=== PATIENT | male | born 1980 | race Caucasian/White ===

== ENCOUNTER 2017-12-23 10:08 | Inpatient (IN) | payer OTHER ==
[2017-12-23 11:46] LABS: BASO % 0.4 % (0.0-1.0); EOS # 0.1 10^3/uL (0.0-0.50); EOS % 1.3 % (0.0-3.0); HEMATOCRIT 46.6 % (42.0-52.0); HEMOGLOBIN 15.8 g/dl (13.5-17.5); IMMATURE GRANULOCYTE % 1.4 % (0-3.0); LYMPH # 2.2 10^3/uL (1.5-4.5); LYMPH % 21.8 % (24.0-44.0); MEAN CORPUSCULAR HEMOGLOBIN 29.3 pg (27.0-33.0); MEAN CORPUSCULAR HGB CONC 33.9 g/dl (32.0-36.5); MEAN CORPUSCULAR VOLUME 86.3 fl (80.0-96.0); MONO # 0.8 10^3/uL (0.0-0.8); MONO % 7.4 % (0.0-5.0); NEUTROPHILS # 6.9 10^3/uL (1.8-7.7); NEUTROPHILS % 67.7 % (36.0-66.0); PLATELET COUNT, AUTOMATED 210 10^3/uL (150-450); RED CELL DISTRIBUTION WIDTH 13.5 % (11.5-14.5); WHITE BLOOD COUNT 10.2 10^3/uL (4.0-10.0)
[2017-12-23 12:08] LABS: AMPHETAMINES LEVEL URINE NEGATIVE (NEGATIVE); BARBITURATES URINE NEGATIVE (NEGATIVE); BENZODIAZEPINES URINE NEGATIVE (NEGATIVE); CANNABINOIDS URINE NEGATIVE (NEGATIVE); COCAINE METABOLITE URINE NEGATIVE (NEGATIVE); METHADONE URINE NEGATIVE (NEGATIVE); OPIATES URINE NEGATIVE (NEGATIVE); PHENCYCLIDINE URINE NEGATIVE (NEGATIVE)
[2017-12-23 12:13] LABS: ALBUMIN 3.5 GM/DL (3.2-5.2); ALBUMIN/GLOBULIN RATIO 1.25 (1.00-1.93); ALKALINE PHOSPHATASE 67 U/L (45-117); ALT/SGPT 46 U/L (12-78); ANION GAP 9 MEQ/L (8-16); AST/SGOT 22 U/L (7-37); BILIRUBIN,DIRECT 0.1 MG/DL (0.0-0.2); BILIRUBIN,TOTAL 0.3 MG/DL (0.2-1.0); BLOOD UREA NITROGEN 9 MG/DL (7-18); CALCIUM LEVEL 8.2 MG/DL (8.5-10.1); CARBON DIOXIDE LEVEL 28 MEQ/L (21-32); CHLORIDE LEVEL 105 MEQ/L (98-107); CREATININE FOR GFR 0.91 MG/DL (0.70-1.30); ETHYL ALCOHOL (ETHANOL) 0.023 % (0.000-0.010); GLOMERULAR FILTRATION RATE > 60.0 (>60); GLUCOSE, FASTING 95 MG/DL (70-100); POTASSIUM SERUM 3.8 MEQ/L (3.5-5.1); SALICYLATE LEVEL 1.7 MG/DL (5.0-30.0); SODIUM LEVEL 142 MEQ/L (136-145); THYROID STIMULATING HORMONE 0.725 uIU/ML (0.358-3.740); TOTAL PROTEIN 6.3 GM/DL (6.4-8.2)
[2017-12-23 12:17] LABS: ACETAMINOPHEN LEVEL < 2.0 UG/ML (10.0-30.0)
[2017-12-23] MEDS: NICOTINE 14 MG/24 HR TRANSDERMAL TD (12:42)
[2017-12-23] MEDS: GABAPENTIN 300 MG CAP PO ×2 (12:42→21:10)
[2017-12-23] MEDS: hydroCHLOROthiazide 12.5 MG CAPSULE PO (15:05)
[2017-12-23] MEDS: LISINOPRIL 20 MG TAB PO (15:05)
[2017-12-23] MEDS: traZODone 100 MG TAB PO (22:13)
[2017-12-24] MEDS: NICOTINE 21MG/24HR 1 EA TRANSDERMAL TD (08:13)
[2017-12-24] MEDS: LISINOPRIL 20 MG TAB PO (08:13)
[2017-12-24] MEDS: hydroCHLOROthiazide 12.5 MG CAPSULE PO (08:13)
[2017-12-24] MEDS: predniSONE 10 MG TAB PO (08:13)
[2017-12-24] MEDS: GABAPENTIN 300 MG CAP PO ×3 (08:13→21:02)
[2017-12-24] MEDS: VENLAFAXINE **XR** 37.5 MG CAPSULE PO (11:25)
[2017-12-24] MEDS: ACETAMINOPHEN TAB 650MG DOSE (2X325MG) PO (12:25)
[2017-12-24] MEDS: traZODone 100 MG TAB PO (21:57)
[2017-12-25] MEDS: GABAPENTIN 300 MG CAP PO ×3 (08:47→21:35)
[2017-12-25] MEDS: hydroCHLOROthiazide 12.5 MG CAPSULE PO (08:47)
[2017-12-25] MEDS: NICOTINE 21MG/24HR 1 EA TRANSDERMAL TD (08:47)
[2017-12-25] MEDS: LISINOPRIL 20 MG TAB PO (08:47)
[2017-12-25] MEDS: predniSONE 10 MG TAB PO (08:47)
[2017-12-25] MEDS: VENLAFAXINE **XR** 37.5 MG CAPSULE PO (08:47)
[2017-12-25] MEDS: ACETAMINOPHEN TAB 650MG DOSE (2X325MG) PO (10:44)
[2017-12-25] MEDS: traZODone 100 MG TAB PO (22:09)
[2017-12-26] MEDS: GABAPENTIN 300 MG CAP PO ×3 (08:05→21:39)
[2017-12-26] MEDS: NICOTINE 21MG/24HR 1 EA TRANSDERMAL TD (08:05)
[2017-12-26] MEDS: hydroCHLOROthiazide 12.5 MG CAPSULE PO (08:05)
[2017-12-26] MEDS: LISINOPRIL 20 MG TAB PO (08:05)
[2017-12-26] MEDS: VENLAFAXINE **XR** 37.5 MG CAPSULE PO ×2 (08:05→09:34)
[2017-12-26] MEDS: VENLAFAXINE **XR** 75MG CAPSULE PO (09:00)
[2017-12-26] MEDS: traZODone 100 MG TAB PO (22:46)
[2017-12-27] MEDS: hydroCHLOROthiazide 12.5 MG CAPSULE PO (08:09)
[2017-12-27] MEDS: NICOTINE 21MG/24HR 1 EA TRANSDERMAL TD (08:09)
[2017-12-27] MEDS: LISINOPRIL 20 MG TAB PO (08:09)
[2017-12-27] MEDS: VENLAFAXINE **XR** 75MG CAPSULE PO (08:09)
[2017-12-27] MEDS: GABAPENTIN 300 MG CAP PO ×3 (08:09→21:02)
[2017-12-27] MEDS: ACETAMINOPHEN TAB 650MG DOSE (2X325MG) PO (12:27)
[2017-12-27] MEDS: traZODone 100 MG TAB PO (22:29)
[2017-12-28] MEDS: NICOTINE 21MG/24HR 1 EA TRANSDERMAL TD (08:26)
[2017-12-28] MEDS: GABAPENTIN 300 MG CAP PO ×3 (08:26→20:52)
[2017-12-28] MEDS: VENLAFAXINE **XR** 37.5 MG CAPSULE PO (08:26)
[2017-12-28] MEDS: hydroCHLOROthiazide 12.5 MG CAPSULE PO (08:27)
[2017-12-28] MEDS: LISINOPRIL 20 MG TAB PO (08:27)
[2017-12-28] MEDS ORDERED: VENLAFAXINE **XR** 75MG CAPSULE PO (09:00)
[2017-12-28] MEDS: traZODone 100 MG TAB PO (22:38)
[2017-12-29] MEDS: LISINOPRIL 20 MG TAB PO (08:00)
[2017-12-29] MEDS: GABAPENTIN 300 MG CAP PO ×3 (08:00→22:02)
[2017-12-29] MEDS: VENLAFAXINE **XR** 75MG CAPSULE PO (08:00)
[2017-12-29] MEDS: hydroCHLOROthiazide 12.5 MG CAPSULE PO (08:00)
[2017-12-29] MEDS: NICOTINE 21MG/24HR 1 EA TRANSDERMAL TD (08:01)
[2017-12-29] MEDS: ARIPiprazole 2 MG TAB PO (22:01)
[2017-12-29] MEDS: traZODone 100 MG TAB PO (22:41)
[2017-12-30] MEDS: NICOTINE 21MG/24HR 1 EA TRANSDERMAL TD (08:17)
[2017-12-30] MEDS: hydroCHLOROthiazide 12.5 MG CAPSULE PO (08:17)
[2017-12-30] MEDS: LISINOPRIL 20 MG TAB PO (08:17)
[2017-12-30] MEDS: VENLAFAXINE **XR** 75MG CAPSULE PO (08:17)
[2017-12-30] MEDS: GABAPENTIN 300 MG CAP PO ×3 (08:17→20:19)
[2017-12-30] MEDS: ACETAMINOPHEN TAB 650MG DOSE (2X325MG) PO (12:39)
[2017-12-30] MEDS: traZODone 100 MG TAB PO (23:07)
[2017-12-31] MEDS: VENLAFAXINE **XR** 75MG CAPSULE PO (09:00)
[2017-12-31] MEDS: hydroCHLOROthiazide 12.5 MG CAPSULE PO (09:00)
[2017-12-31] MEDS: LISINOPRIL 20 MG TAB PO (09:00)
[2017-12-31] MEDS: GABAPENTIN 300 MG CAP PO ×3 (09:00→20:47)
[2017-12-31] MEDS: NICOTINE 21MG/24HR 1 EA TRANSDERMAL TD (09:01)
[2017-12-31] MEDS: MULTIVITAMINS/MINERALS THERAP 1 TAB PO (11:57)
[2017-12-31] MEDS: traZODone 100 MG TAB PO (23:47)
[2018-01-01] MEDS: GABAPENTIN 300 MG CAP PO ×3 (08:04→21:37)
[2018-01-01] MEDS: LISINOPRIL 20 MG TAB PO (08:04)
[2018-01-01] MEDS: hydroCHLOROthiazide 12.5 MG CAPSULE PO (08:04)
[2018-01-01] MEDS: MULTIVITAMINS/MINERALS THERAP 1 TAB PO (08:04)
[2018-01-01] MEDS: NICOTINE 21MG/24HR 1 EA TRANSDERMAL TD (08:05)
[2018-01-01] MEDS: VENLAFAXINE **XR** 75MG CAPSULE PO (08:05)
[2018-01-01] MEDS: ACETAMINOPHEN TAB 650MG DOSE (2X325MG) PO (17:31)
[2018-01-01] MEDS: traZODone 100 MG TAB PO (23:30)
[2018-01-02] MEDS: VENLAFAXINE **XR** 75MG CAPSULE PO (09:10)
[2018-01-02] MEDS: LISINOPRIL 20 MG TAB PO (09:10)
[2018-01-02] MEDS: hydroCHLOROthiazide 12.5 MG CAPSULE PO (09:11)
[2018-01-02] MEDS: GABAPENTIN 300 MG CAP PO ×3 (09:11→21:03)
[2018-01-02] MEDS: NICOTINE 21MG/24HR 1 EA TRANSDERMAL TD (09:11)
[2018-01-02] MEDS: MULTIVITAMINS/MINERALS THERAP 1 TAB PO (09:11)
[2018-01-02] MEDS: MOM 30ML SUSPENSION UDC PO (10:51)
[2018-01-02] MEDS: NICOTINE 14 MG/24 HR TRANSDERMAL TD (14:37)
[2018-01-02] MEDS: traZODone 100 MG TAB PO (23:02)
[2018-01-03] MEDS: LISINOPRIL 20 MG TAB PO (08:46)
[2018-01-03] MEDS: MULTIVITAMINS/MINERALS THERAP 1 TAB PO (08:46)
[2018-01-03] MEDS: GABAPENTIN 300 MG CAP PO ×3 (08:46→20:40)
[2018-01-03] MEDS: VENLAFAXINE **XR** 75MG CAPSULE PO (08:46)
[2018-01-03] MEDS: hydroCHLOROthiazide 12.5 MG CAPSULE PO (08:47)
[2018-01-03] MEDS: NICOTINE 14 MG/24 HR TRANSDERMAL TD (08:47)
[2018-01-03] MEDS: traZODone 100 MG TAB PO (22:44)
[2018-01-04] MEDS: MULTIVITAMINS/MINERALS THERAP 1 TAB PO (08:27)
[2018-01-04] MEDS: GABAPENTIN 300 MG CAP PO ×3 (08:27→20:56)
[2018-01-04] MEDS: hydroCHLOROthiazide 12.5 MG CAPSULE PO (08:27)
[2018-01-04] MEDS: VENLAFAXINE **XR** 75MG CAPSULE PO (08:27)
[2018-01-04] MEDS: NICOTINE 14 MG/24 HR TRANSDERMAL TD ×2 (08:28→09:48)
[2018-01-04] MEDS: LISINOPRIL 20 MG TAB PO (08:28)
[2018-01-04] MEDS: MAALOX 30 ML SUSP *UDC PO (21:38)
[2018-01-04] MEDS: traZODone 100 MG TAB PO (22:46)
[2018-01-05] MEDS: GABAPENTIN 300 MG CAP PO ×3 (08:42→20:35)
[2018-01-05] MEDS: MULTIVITAMINS/MINERALS THERAP 1 TAB PO (08:42)
[2018-01-05] MEDS: VENLAFAXINE **XR** 75MG CAPSULE PO (08:42)
[2018-01-05] MEDS: NICOTINE 14 MG/24 HR TRANSDERMAL TD (08:42)
[2018-01-05] MEDS: hydroCHLOROthiazide 12.5 MG CAPSULE PO (08:42)
[2018-01-05] MEDS: LISINOPRIL 20 MG TAB PO (08:44)
[2018-01-05] MEDS: ARIPiprazole 10 MG TAB PO (20:35)
[2018-01-05] MEDS: traZODone 100 MG TAB PO (22:05)
[2018-01-06] MEDS: LISINOPRIL 20 MG TAB PO (08:22)
[2018-01-06] MEDS: VENLAFAXINE **XR** 75MG CAPSULE PO (08:22)
[2018-01-06] MEDS: GABAPENTIN 300 MG CAP PO ×3 (08:22→21:37)
[2018-01-06] MEDS: MULTIVITAMINS/MINERALS THERAP 1 TAB PO (08:22)
[2018-01-06] MEDS: hydroCHLOROthiazide 12.5 MG CAPSULE PO (08:22)
[2018-01-06] MEDS: NICOTINE 14 MG/24 HR TRANSDERMAL TD (09:00)
[2018-01-06] MEDS: ARIPiprazole 10 MG TAB PO (21:37)
[2018-01-06] MEDS: traZODone 100 MG TAB PO (22:08)
[2018-01-07] MEDS: VENLAFAXINE **XR** 75MG CAPSULE PO (04:51)
[2018-01-07] MEDS: MULTIVITAMINS/MINERALS THERAP 1 TAB PO (04:52)
[2018-01-07] MEDS: GABAPENTIN 300 MG CAP PO (04:52)
[2018-01-07] MEDS: hydroCHLOROthiazide 12.5 MG CAPSULE PO (04:53)
[2018-01-07] MEDS: LISINOPRIL 20 MG TAB PO (04:53)
[2018-01-07] MEDS ORDERED: GABAPENTIN 300 MG CAP PO (14:00)
== END 2018-01-07 05:00 | DRG 885 ==
LOC: M PSY 01-04 08:15 → M ED 10:08 → M ED INP 15:28 → M PSY 17:53
DX: F33.9 Major depressive disorder, recurrent, unspecified (principal); F41.1 Generalized anxiety disorder; I10 Essential (primary) hypertension; F40.10 Social phobia, unspecified; F17.220 Nicotine dependence, chewing tobacco, uncomplicated; F17.210 Nicotine dependence, cigarettes, uncomplicated; M54.81 Occipital neuralgia; Z79.899 Other long term (current) drug therapy; Z81.8 Family history of other mental and behavioral disorders; Z59.9 Problem related to housing and economic circumstances, unspecified; Z56.3 Stressful work schedule; F43.10 Post-traumatic stress disorder, unspecified; F63.81 Intermittent explosive disorder; F90.9 Attention-deficit hyperactivity disorder, unspecified type

== ENCOUNTER → 2018-06-06 | Outpatient (CLI) | payer OTHER ==
[~2018-06-06] MED LIST: ARIP10TAB PO; CONC36TA4 PO; CONRAY-43 43% 50ML VIAL (Q9960) As Ordered ONE; GABA600T4 PO; METH54TA PO; PRED10PA PO; PROHANCE 279.3MG/ML 5ML VIAL (A9576) As Ordered ONE; TRAZ-163 PO; VENL150C43 PO; ZEST1TAB2 PO
--- NOTE | 2018-06-06 11:32 | REP ---
MR ARTHROGRAM RIGHT SHOULDER: TECHNIQUE: Axial T2 fat sat, coronal oblique T1, T2 fat sat, post arthrogram axial T1 fat sat, proton density, coronal oblique T1 fat sat, T2 sat, sagittal oblique T2 fat sat, ABER T1 fat sat. There are minor hypertrophic changes at the acromioclavicular joint with downward sloping of the acromion which is type 2. There is ill-defined high signal involving the supraspinatus tendon compatible with tendinopathy/tendonitis. I do not see evidence of a rotator cuff tear. There also appears to be tendinosis of the subscapularis. Biceps tendon is within the bicipital groove and no tenosynovitis. There is no Hill-Sachs deformity. No abnormal signal is seen in the deltoid muscle. Biceps labral complex appears intact. I do not see evidence of a labral tear. No paralabral cyst is seen. Bone marrow signal is homogeneous and unremarkable. There is no bone marrow edema or occult fracture. There is a normal amount of joint fluid. IMPRESSION: Very mild hypertrophic changes as the acromioclavicular joint with mild downward sloping of the acromion which is type 2. There is supraspinatus tendinopathy/tendonitis without evidence of a rotator cuff tear or labral tear. Electronically Signed by Bimal Wynn MD 06/06/2018 04:46 P
--- NOTE | 2018-06-06 16:43 | REP ---
Procedure: Right shoulder arthrogram The procedure was performed under the direct supervision of Dr. Wynn. History: Right shoulder pain The benefits and risks including but not limited to pain, infection, bleeding and anaphylaxis were explained to the patient and informed consent was obtained. Technique: The right glenohumeral joint space was localized using fluoroscopic guidance. The skin was prepped and draped in a sterile fashion. 1% lidocaine was used as a local anesthetic. Using fluoroscopic guidance a 22 gauge spinal needle was inserted and advanced into the joint. 0.5 ml of Conray 43 was injected to verify placement. 11 ml of a solution containing 20 ml of sterile saline and 0.15 ml of ProHance was injected into the joint. The needle was removed and the patient was taken to MRI for postprocedural imaging. The the patient tolerated the procedure well and there were no immediate complications. Less than 6 seconds of fluoro time was utilized for this procedure. Reviewed by SANDRA Chavarria 06/06/2018 04:01 P Electronically Signed by Bimal Wynn MD 06/06/2018 04:35 P
== END ==
LOC: M RADPRO 06:35
DX: M65.811 Other synovitis and tenosynovitis, right shoulder (principal); M25.511 Pain in right shoulder
CPT/HCPCS: 23350; 73223; 77002; A9576; Q9960

== ENCOUNTER → 2018-12-26 | Outpatient (CLI) | payer OTHER ==
[~2018-12-26] MED LIST changes: -ARIP10TAB PO; +ARIP1TAB PO; -CONRAY-43 43% 50ML VIAL (Q9960) As Ordered ONE; -METH54TA PO; +METH54TA5 PO; -PROHANCE 279.3MG/ML 5ML VIAL (A9576) As Ordered ONE
--- NOTE | 2018-12-26 08:12 | REP ---
Abdominal right upper quadrant ultrasound for nausea and vomiting: There is no cholelithiasis, gallbladder wall thickening or pericholecystic fluid. There is no intrahepatic or extrahepatic biliary duct dilatation. The common biliary duct measures 2.0 mm in diameter. The hepatic parenchyma is homogeneous and otherwise unremarkable. The visualized areas of the pancreas are unremarkable. The right kidney is normal size measuring 11.0 x 5.3 x 4.4 cm. There are is no calculus, hydronephrosis, solid mass or cyst in the right kidney. There is no right upper quadrant ascites. Impression: Essentially negative abdominal right upper quadrant ultrasound. Electronically Signed by Bimal Ramsay MD 12/26/2018 08:03 A
== END ==
LOC: M RAD 07:19
PROVIDERS: ATTEND Internal Medicine Gastroenterology
DX: R11.2 Nausea with vomiting, unspecified (principal)

== ENCOUNTER 2019-01-19 11:47 | Day surgery (SDC) | payer OTHER ==
[~2019-01-19] VITALS: Ht 172.7 cm; Wt 95.7 kg
[~2019-01-19 11:47] MED LIST changes: +BUSP15TA47 PO; +CONC18TA14 PO; +NS 1,000 ML IV ONE; +PROZ20CA11 PO; +ZEST1TAB3 PO
[2019-01-19] MEDS ORDERED: LIDOCAINE 2% INJ 100 MG/5 ML SDV (FOR ANES.) As Ordered ONE ×2 (13:32→13:51)
[2019-01-19] MEDS ORDERED: PROPOFOL 200 MG/20 ML VIAL As Ordered ONE ×2 (13:32→14:08)
--- NOTE | 2019-01-19 14:33 | ROOR ---
Patient Name: Arun Kitchen Procedure Date: 01/19/2019 1:49 PM Date of : 1980 Age: 38 Room: [facility] Gender: Male Note Status: Finalized Procedure: Upper GI endoscopy Indications: Persistent vomiting Providers: Rc Fulton MD Referring MD: BLADIMIR BATISTA MD Requesting Provider: Medicines: Monitored Anesthesia Care Complications: No immediate complications. Procedure: Pre-Anesthesia Assessment: - Prior to the procedure, a History and Physical was performed, and patient medications and allergies were reviewed. The patient is competent. The risks and benefits of the procedure and the sedation options and risks were discussed with the patient. All questions were answered and informed consent was obtained. Patient identification and proposed procedure were verified by the physician, the nurse and the anesthesiologist in the procedure room. Mental Status Examination: normal. Airway Examination: normal oropharyngeal airway and neck mobility. Respiratory Examination: clear to auscultation. CV Examination: normal. Prophylactic Antibiotics: The patient does not require prophylactic antibiotics. Prior Anticoagulants: The patient has taken no previous anticoagulant or antiplatelet agents. ASA Grade Assessment: II - A patient with mild systemic disease. After reviewing the risks and benefits, the patient was deemed in satisfactory condition to undergo the procedure. The anesthesia plan was to use monitored anesthesia care (MAC). Immediately prior to administration of medications, the patient was re-assessed for adequacy to receive sedatives. The heart rate, respiratory rate, oxygen saturations, blood pressure, adequacy of pulmonary ventilation, and response to care were monitored throughout the procedure. The physical status of the patient was re-assessed after the procedure. The Endoscope was introduced through the mouth, and advanced to the second part of duodenum. The upper GI endoscopy was accomplished without difficulty. The patient tolerated the procedure well. Findings: The examined esophagus was normal. The Z-line was regular and was found 40 cm from the incisors. Scattered moderate inflammation characterized by congestion (edema), erythema, friability and granularity was found in the gastric antrum. Biopsies were taken with a cold forceps for Helicobacter pylori testing. Verification of patient identification for the specimen was done by the physician and nurse using the patient's name, date and medical record number. Estimated blood loss was minimal. The duodenal bulb and second portion of the duodenum were normal. Biopsies for histology were taken with a cold forceps for evaluation of celiac disease. Impression: - Normal esophagus. - Z-line regular, 40 cm from the incisors. - Gastritis. Biopsied. - Normal duodenal bulb and second portion of the duodenum. Biopsied. Recommendation: - Patient has a contact number available for emergencies. The signs and symptoms of potential delayed complications were discussed with the patient. Return to normal activities tomorrow. Written discharge instructions were provided to the patient. - Resume previous diet. - Continue present medications. - Use Protonix (pantoprazole) 40 mg PO daily - to be taken range examiner 1/2 hour before breakfast for 8 weeks. - Telephone GI clinic for pathology results in 2 weeks. - Return to primary care physician. Rc Fulton MD Rc Fulton MD 01/19/2019 2:33:26 PM Electronically signed by Rc Fulton MD Number of Addenda: 0 Note Initiated On: 01/19/2019 1:49 PM Estimated Blood Loss: Estimated blood loss was minimal.
[2019-01-19 14:40] VITALS: BP 129/81
== END 2019-01-19 14:45 | disposition home or self-care (01) ==
LOC: M OPP 11:47
PROVIDERS: ATTEND Internal Medicine Gastroenterology
DX: K29.70 Gastritis, unspecified, without bleeding (principal); R11.10 Vomiting, unspecified; G47.30 Sleep apnea, unspecified; I10 Essential (primary) hypertension; Z79.899 Other long term (current) drug therapy; F17.299 Nicotine dependence, other tobacco product, with unspecified nicotine-induced disorders; Z80.0 Family history of malignant neoplasm of digestive organs

== ENCOUNTER → 2019-04-17 | Outpatient (CLI) | payer OTHER ==
[~2019-04-17] MED LIST changes: -NS 1,000 ML IV ONE
--- NOTE | 2019-04-17 08:27 | PFTRPT ---
Site: [facility], [address] [place] [address], [id number] ID: [id number] Name: KALEB ADAIR Visit Date: 04/17/2019 Second ID: [id number] Referring Doctor: Rito Nieto PA-C Reviewing Doctor: Leonardo Benavidez MD Hr Administrator: Andreas VIEIRA RRT Age: 39 : 1980 Sex: Male Race: Height: 68.00 Inches Weight: 200.00 Lbs BSA: 2.04 Order IDs: [id number] Requested Test(s): <RESP-PFT.DLCO> Diagnosis: KENT test meet the ATS standards for acceptability and repeatability. Pt was given four puffs of albuterol for postbronchodilator. Review Status: Not Reviewed Pre-Bronch Post-Bronch Pred Actual %Pred Actual %Chng SPIROMETRY FVC (L) 5.02 5.19 103 5.22 FEV1 (L) 4.04 4.00 98 4.37 9 FEV1/FVC (%) 80 77 96 84 8 FEF 25% (L/sec) 8.11 7.37 90 7.67 4 FEF 50% (L/sec) 5.56 4.20 75 6.03 43 FEF 75% (L/sec) 1.97 1.51 76 2.25 49 FEF 25-75% (L/sec) 3.94 3.58 90 4.68 30 FEF Max (L/sec) 9.78 9.15 93 9.22 FIVC (L) 5.28 5.39 2 FIF 50% (L/sec) 5.32 7.47 140 7.38 -1 FIF Max (L/sec) 7.71 7.95 3 MVV (L/min) 162 151 92 Expiratory Time (sec) 7.08 7.00 -1 Back Extrap Vol (L) 0.12 0.12 1 Time To FEFmax (sec) 0.071 0.082 15 LUNG VOLUMES SVC (L) 4.86 5.26 108 IC (L) 3.32 4.59 138 ERV (L) 1.54 0.67 43 TGV (L) 3.20 3.23 100 RV (Pleth) (L) 1.66 2.56 154 TLC (Pleth) (L) 6.52 7.82 119 RV/TLC (Pleth) (%) 26 33 125 DIFFUSION DLCOunc (ml/min/mmHg) 32.85 33.22 101 DL/VA (ml/min/mmHg/L) 5.04 4.20 83 VA (L) 6.52 7.92 121 BHT (sec) 9.81 IVC (L) 5.19 TLC (SB) (L) 8.07 AIRWAYS RESISTANCE Raw (cmH2O/L/s) 1.45 1.48 102 Gaw (L/s/cmH2O) 1.03 0.68 65 sRaw (cmH2O*s) 4.76 5.28 110 sGaw (1/cmH2O*s) 0.20 0.19 95
== END ==
LOC: M CARPUL 07:46
PROVIDERS: ATTEND Physician Assistant
DX: R11.0 Nausea (principal)